=== PATIENT | female | born 1950 | race Caucasian/White ===

== ENCOUNTER 2020-06-16 21:38 | Emergency (ER) | payer MEDICARE ==
[~2020-06-16] VITALS: Ht 180.3 cm; Wt 90.0 kg
[2020-06-17] MEDS ORDERED: LORAZEPAM 0.5MG TABLET PO ONE (00:30)
[2020-06-17 04:56] VITALS: BP 145/63
== END 2020-06-17 04:59 | disposition home or self-care (01) ==
LOC: ER 21:38
DX: R42 Dizziness and giddiness (principal); R11.0 Nausea; F41.9 Anxiety disorder, unspecified; I10 Essential (primary) hypertension
CPT/HCPCS: 93005; 99283